=== PATIENT | female | born 1935 | race Caucasian/White ===

== ENCOUNTER 2019-04-19 19:26 | Emergency (ER) | payer MEDICARE ==
--- NOTE | 2019-04-19 19:29 | Emergency Department Record ---
History of Present Illness - General Stated Complaint: CONFUSION Time Seen by Provider: 04/19/19 19:27 Source: EMS Mode of Arrival: EMS Limitations: Altered mental status - History of Present Illness Initial Comments: Unknown age female presents to ED for evaluation of confusion, patient was found wandering in a grocery store just prior to arrival, unable to answer other than "yes" to questions. Patient has unknown history, unknown if patient takes anticoagulation medications. MD Complaint: Altered mental status -: Unknown Severity: Moderate Consistency: Constant - [place] Coma Scale Eye Response: (4) Open spontaneously Motor Response: (4) Withdraws to pain Verbal Response: (3) Inappropriate words [place] Total: 11 - Related Data Allergies Allergy/AdvReac Type Severity Reaction Status Date / Time No Known Drug Allergies Allergy Unverified 10/31/16 11:34 Review of Systems ROS unobtainable: Due to mental status Past Medical History - SOCIAL HISTORY Smoking Status: Never smoker - RESPIRATORY Hx Respiratory Disorders: No - CARDIOVASCULAR Hx Cardio Disorders: No - NEURO Hx Neuro Disorders: No - GI Hx GI Disorders: Yes Hx Diverticulitis: Yes - Hx Genitourinary Disorders: No - ENDOCRINE Hx Endocrine Disorders: No Hx Diabetes: Yes (controlled with diet) - MUSCULOSKELETAL Hx Musculoskeletal Disorders: No - PSYCH Hx Psych Problems: No - HEMATOLOGY/ONCOLOGY Hx Hematology/Oncology Disorders: No Family Medical History Hx Cancer: Mother Hx Dementia: Father Hx Heart Disease: Mother Hx Kidney Disease: Mother Hx Stroke: Mother Physical Exam - General General Appearance: Alert, Cooperative, Other (Patient is unable to follow commands, unable to speak other than to say "yes") Limitations: Altered mental status - Head Head exam: Atraumatic, Normocephalic, Normal inspection Head exam detail: negative: Abrasion, Contusion, Mcclellan's sign, General tenderness, Hematoma, Laceration - Eye Eye exam: Normal appearance. negative: Conjunctival injection, Periorbital swelling, Periorbital tenderness, Scleral icterus - ENT Ear exam: negative: Auricular hematoma, Auricular trauma Nasal Exam: negative: Active bleeding, Discharge, Dried blood, Foreign body Mouth exam: negative: Drooling, Laceration, Muffled voice, Tongue elevation - Neck Neck exam: Normal inspection. negative: Meningismus, Tenderness - Respiratory Respiratory exam: Normal lung sounds bilaterally. negative: Rales, Respiratory distress, Rhonchi, Stridor - Cardiovascular Cardiovascular Exam: Regular rate, Normal rhythm, Normal heart sounds - GI/Abdominal GI/Abdominal exam: Soft. negative: Rebound, Rigid, Tenderness - Rectal Rectal exam: Deferred - exam: Deferred - Extremities Extremities exam: Normal inspection. negative: Pedal edema, Tenderness - Back Back exam: Denies: CVA tenderness (R), CVA tenderness (L) - Neurological Neurological exam: Alert, Other (Cannot assess neurological examination due to limited ability to follow commands/cooeprate with examination) - Psychiatric Psychiatric exam: Normal affect, Normal mood - Skin Skin exam: Normal color. negative: Abrasion Type of lesion: negative: abrasion Course - Reevaluation(s) Reevaluation #1: 04/19/19 19:47 While attempting to obtain EKG, patient had witnessed generalized tonic-clonic seizure. Patient is going for emergent CT imaging at this time. Patient's emergency contact was updated on all results thus far. Reevaluation #2: 04/19/19 19:48 EKG: NSR 136 LAD, RBBB Diffuse artifact present Reevaluation #3: 04/19/19 20:18 Patient was unable to lie stillf for CT imaging following her seizure Patient was brought back to the ED for Intubation and airway protection to obtain CT imaging. Reevaluation #4: 04/19/19 20:31 Laboratory studies were reviewed and appear grossly unremarkable for an acute process. Patient was taken back to CT to complete the remainder of her studies. 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 Propofol increased to 2 mg/min at this time for increased sedation. 04/19/19 21:15 Case was discussed with Dr. Noble, will order Keppra 1000 mg IV at this time. 04/19/19 21:25 Case was discussed with Dr. Padilla (Critical Care attending), will accept transfer at this time. 04/19/19 21:38 Propofol increased to 2.5 mg/min for increased sedation (patient moving). 04/19/19 21:42 Bed assignment has been received, family updated on pending transfer at this time. 04/19/19 21:44 Keppra is not currently available at [facility] 1-call contacted and notified. Procedures - Intubation Date: 04/19/19 Time: 20:32 Time Out Performed: Yes Sedative: Etomidate Mg Given: 20 Paralytic: Succinylcholine Mg Given: 100 Laryngoscope: Other (Glidescope) Size: 4 ET Tube Size: 7.5 ET Tube Uncuffed: Yes Tube Secured Depth (cm): 24 Tube Secured Location: Lips Tube Placement Confirmation: Confirmation by capnometry, Equal breath sounds bilaterally, Visualized tube passing through cords Patient Tolerated Procedure: Good Intubation Complications: None Medical Decision Making - Lab Data Result diagrams: 04/19/19 19:30 04/19/19 19:30 Critical Care Time Critical Care Time: Yes Total Critical Care Time: 90 Critical Care Time: Diagnosis and treatment of alteration in mental status, exclusion of acute intra-cranial hemorrhage/large vessel CVA Intubation for airway protection to perform neuro-imaging review of the patient's EKG, laboratory studies Ventilator management, CXR for tube placement and review. Frequent reassessments, updating of patient's daughter at the bedside. Consultation with Neurology and Critical Care. Disposition Disposition: Transfer Clinical Impression: Generalized seizure CVA (cerebral vascular accident) Qualifiers: CVA mechanism: unspecified Qualified Code(s): I63.9 - Cerebral infarction, unspecified Respiratory failure Qualifiers: Chronicity: acute Respiratory failure complication: hypercapnia Qualified Code(s): J96.02 - Acute respiratory failure with hypercapnia Disposition: Acute Care Hospital Transfer Transfer To: [facility] Reason For Transfer: Neurology/ICU consultation Accepting Physician: Randy Noble Time Discussed w/Accepting Physician: 21:16 Condition: (2) Stable Time of Disposition: 21:16 Quality - Quality Measures Quality Measures: N/A - Blood Pressure Screening Does Patient Have Any of the Following: Active Dx of HTN Blood Pressure Classification: Pre-Hypertensive BP Reading Systolic Measurement: 175 Diastolic Measurement: 87 Screening for High Blood Pressure: Patient Exclusion, Hx of HTN [[id number]]
[2019-04-19 19:35] LABS: ABSOLUTE NEUTROPHIL COUNT 5.54; BASO % 0.1 % (0-6); EOS % 1.1 % (0-6); GRAN % 69.2 % (47-80); HEMATOCRIT 37.4 % (35.0-47.0); HEMOGLOBIN 11.7 gm/dl (11.6-16.0); LYMPH % 22.7 % (16-45); MEAN CELL VOLUME 88.2 fl (81-97); MEAN CORPUSCULAR HEMOGLOBIN 27.6 pg (27-33); MEAN CORPUSCULAR HGB CONC 31.3 g/dl (32-36); MEAN PLATELET VOLUME 8.2 fl (7.4-10.4); MONO % 6.9 % (0-9); PLATELET COUNT 355 K/uL (130-400); RED BLOOD COUNT 4.24 M/uL (3.80-5.40); RED CELL DISTRIBUTION WIDTH 13.7 % (11.5-14.5)
[2019-04-19] MEDS: LORAZEPAM 2 MG/ML VIAL IV ONE (19:43)
[2019-04-19 19:50] LABS: BLOOD UREA NITROGEN 14 mg/dL (8-23); CREATININE 0.6 mg/dL (0.5-0.9); EST GLOMERULAR FILTRATION RATE > 60 mL/min
[2019-04-19 19:51] LABS: INR 0.9; PROTHROMBIN TIME (PATIENT) 9.6 SECONDS (9.5-12.1); TOTAL PROTEIN 7.5 g/dL (6.6-8.7)
[2019-04-19 19:53] LABS: GLUCOSE,RANDOM 109 mg/dL (74-109)
[2019-04-19 19:56] LABS: ALB/GLOB RATIO 1.3 (1.1-1.8); ALBUMIN 4.3 g/dL (4.0-5.0); ALKALINE PHOSPHATASE 110 U/L (35-104); ALT/SGPT 31 U/L (<33); AST/SGOT 27 U/L (10.0-35.0)
[2019-04-19 20:06] LABS: THYROID STIMULATING HORMONE 3.78 uIU/mL (0.270-4.20)
[2019-04-19] MEDS ORDERED: ETOMIDATE 20MG/10ML VIAL IVP ONE (20:17)
[2019-04-19] MEDS ORDERED: SUCCINYLCHOLINE 20 MG/ML 10ML IVP ONE (20:17)
[2019-04-19] MEDS ORDERED: LORAZEPAM 2 MG/ML VIAL IV ONE (20:17)
--- NOTE | 2019-04-19 21:09 | CT SCAN REPORT ---
EXAMINATION: HEAD WO CONTRAST EXAM DATE: 04/19/2019 8:52 PM TECHNIQUE: Noncontrast axial images were obtained to the brain. INDICATION: Confusion, ? CVA COMPARISON: Concurrent CT angiogram ENCOUNTER: Not applicable. HAND DOMINANCE: Unknown FINDINGS: Low-attenuation confluent areas in the periventricular and subcortical white matter. The brain paren chyma is otherwise unremarkable. No loss of mccracken-white matter differentiation or sulcal effacement to indicate acute infarction. No evidence of intracranial mass. There is enlargement of the ventricles, sulci, and subarachnoid spaces. No hydrocephalus. There is arterial calcification. No intra-axial or extra-axial fluid collection. No evidence of intracranial hemorrhage. Right orbital mass along the superior ophthalmic vein measuring approximately 1.7 x 0.8 x 0.8 cm. 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 Prior bilateral cataract surgery. The paranasal sinuses, masto id air cells, and orbits are otherwise unremarkable. The calvarium is intact. IMPRESSION: 1. No CT evidence of intracranial hemorrhage or acute intracranial abnormality. 2. Extensive white matter hypoattenuation most commonly represents chronic microvascular ischemic d isease. MR would be more sensitive for acute infarct in this context. 3. Mild cerebral and cerebellar atrophy, consistent with age. 4. 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 Nonemergent ophthalmologic consultation is advi sed. A Red Critical Result was communicated to DR ANITA RAHMAN at 04/19/2019 8:58 PM Dictated by: BALAJI MARIEE MD on 04/19/2019 8:57 PM. .
[2019-04-19] MEDS ORDERED: LEVETIRACETAM 500 MG/5 ML VIAL IV SCH (21:15)
[2019-04-19 21:25] LABS: URINE APPEARANCE CLEAR; URINE BILIRUBIN NEGATIVE (NEGATIVE); URINE BLOOD NEGATIVE (NEGATIVE); URINE COLOR YELLOW; URINE GLUCOSE (UA) NEGATIVE (NEGATIVE); URINE KETONE NEGATIVE (NEGATIVE); URINE LEUKOCYTE ESTERASE NEGATIVE (NEGATIVE); URINE NITRITE NEGATIVE (NEGATIVE); URINE PROTEIN NEGATIVE (NEGATIVE); URINE UROBILINOGEN 0.2 E.U./dL (0.20 - 1.00)
--- NOTE | 2019-04-19 21:48 | CT ANGIOGRAM REPORT ---
EXAMINATION: CT ANGIOGRAM OF THE HEAD WITH CONTRAST, CT ANGIOGRAM OF THE NECK WITH CONTRAST EXAM DATE: 04/19/2019 8:53 PM TECHNIQUE: Arterial phase thin-slice spiral images were obtained during rapid infusion of intravenou s contrast from the aortic arch through the brain. Multiplanar 2-D reformats were performed. For be tter evaluation of vessel anatomy and pathology, post-processing was done to include 3-D reconstructi ons. IV Contrast: The type and amount of contrast is recorded in the medical record. PQRI Documentation : All internal carotid artery stenosis were calculated using the distal internal c arotid artery diameter as the denominator (NASCET criteria) INDICATION: Confusion, ? CVA. COMPARISON: CT of the brain 04/19/2018 FINDINGS: CT angiogram head: Right internal carotid artery: Unremarkable. Left internal carotid artery: Unremarkable. Right OLAF: Unremarkable Right MCA: Unremarkable. Right LABORER PIPELINE: Unremarkable. Left OLAF: Unremarkable Left MCA: Unremarkable. Left LABORER PIPELINE: Unremarkable. Right vertebral artery: Unremarkable. Left vertebral artery: Unremarkable. Basilar artery: Unremarkable. No evidence of vascular malformation. The dural sinuses are patent. The right orbital mass appears extraconal along the right superior orbital vein is estimated to measu re 2 x 1 x 0.7 cm. 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 CT angiogram neck: Normal three-vessel left-sided aortic arch.. The proximal subclavian arteries are unremarkable Right common carotid artery: Unremarkable. Right internal carotid artery: Unremarkable. Left common carotid artery: Unremarkable. Left internal carotid artery: Unremarkable. Right vertebral artery: Unremarkable. Left vertebral artery: Unremarkable. No evidence of carotid or vertebral artery dissection. The endotracheal tube tip is demonstrated in the right mainstem bronchus. A right thyroid nodule measures 2.2 cm in diameter. IMPRESSION: 1. No large vessel occlusion. 2. Endotracheal tube tip in the right mainstem bronchus 3. 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 Nonemergent ophthalmologic consult ation is advised. 4. Largest thyroid nodule measuring 2.2 centimeters. Consider nonemergent thyroid ultrasound. 5. Otherwise unremarkable CT angiogram of the head and neck. - No evidence of significant intracranial aneurysm or stenosis. No evidence of venous thrombosis - No significant arterial stenosis within the neck using the NASCET criteria. - No evidence of arterial dissection. Preliminary result (impression #1) provided to Dr. Jad Francis at 8:58 PM A Red Critical Result was communicated to Dr. Jad Francis at 04/19/2019 9:40 PM Dictated by: BALAJI MARIEE MD on 04/19/2019 9:34 PM. .
--- NOTE | 2019-04-19 22:04 | RADIOLOGY REPORT ---
EXAMINATION: Single View Chest EXAM DATE: 04/19/2019 9:45 PM TECHNIQUE: Single view chest INDICATION: tube placement COMPARISON: None. ENCOUNTER: Not applicable FINDINGS: Tip of the endotracheal tube is at the missael. This can be withdrawn 2 to 3 cm. Nasogastric tube extends to the stomach. Cardiomediastinal silhouette within normal limits. Normal pulmonary vessels. Streaky opacities bilate rally likely scarring or subsegmental atelectasis. No consolidation. No sizable pleural effusion. No pneumothorax. Dictated by: Gege He MD on 04/19/2019 10:00 PM. .
== END 2019-04-19 22:05 | disposition short-term general hospital (02) ==
LOC: ER 19:26
DX: I63.9 Cerebral infarction, unspecified (principal); J96.02 Acute respiratory failure with hypercapnia; G40.309 Generalized idiopathic epilepsy and epileptic syndromes, not intractable, without status epilepticus; I10 Essential (primary) hypertension
CPT/HCPCS: 31500 ×2; 51702; 99291 ×2; 96365; 96375; 99292; 85025; 85610; 80053; 81003; 84443; 71045; 70496; 70498; 70450; 94002; 93005; 93010; Q9967; J2060